=== PATIENT | female | born 1960 | race Caucasian/White ===

== ENCOUNTER 2025-04-21 08:38 | Outpatient (CLI) | payer BC ==
[2025-04-21 09:04] LABS: Estimated GFR - POC 97.0
[2025-04-21] MEDS ORDERED: Iopamidol 370 76% 100 ML VIAL ONE (13:31)
== END 2025-04-21 08:39 | disposition home or self-care (01) ==
LOC: CT 08:38
PROVIDERS: ATTEND Internal Medicine Gastroenterology
DX: R10.13 Epigastric pain (principal); R09.89 Other specified symptoms and signs involving the circulatory and respiratory systems
CPT/HCPCS: 36415; 74177; 82565; Q9967